=== PATIENT | female | born 1975 | race Caucasian/White ===

== ENCOUNTER 2016-04-03 01:08 | Emergency (ER) | payer OTHER ==
[2016-04-03 01:17] VITALS: BP 157/94
[2016-04-03] MEDS ORDERED: NAPROXEN SODIUM 550 MG TABLET PO ONE (01:33)
[2016-04-03] MEDS ORDERED: PENICILLIN V POTASSIUM 250 MG TABLET PO ONE (01:33)
--- NOTE | 2016-04-03 01:33 | ERNOTE ---
ENT HPI Date of Service: 04/03/16 Time Seen by Provider: 04/03/16 01:28 Source: patient - Immun/Allergies/Home Medications Immunizations: IMMUNIZATION HX Immunizations Up to Date Yes History of Influenza Vaccine No Allergies/Adverse Reactions: Allergies Allergy/AdvReac Type Severity Reaction Status Date / Time No Known Allergies Allergy Verified 06/23/15 12:42 Home Medications: HOME MEDICATIONS Norgestimate-Ethinyl Estradiol [Ortho Tri-Cyclen Lo] 1 each PO DAILY 06/25/12 [ Last Taken 01/08/13 08:00] Ranitidine HCl [Zantac 75] 75 mg PO DAILY 06/23/15 [Last Taken Unknown] Naproxen [Naprosyn] 500 mg PO BID PRN #20 tab 04/03/16 [Last Taken Unknown] Penicillin V Potassium [Pen-Vee K] 500 mg PO QID #40 tab 04/03/16 [Last Taken Unknown] - History of Present Illness Narrative: Here for dental pain. Has appointment with dentist next week. Review of Systems - Review of Systems Constitutional: Present: no symptoms reported EYE: Present: no symptoms reported ENT: Present: See HPI Respiratory: Present: no symptoms reported Cardiology: Present: no symptoms reported Gastrointestinal/Abdominal: Present: no symptoms reported - Patient's Past Medical History Patient History - Medical: GERD Patient History - Cardiac/Respiratory: No pertinent hx Patient History - Cancer: No Hx of Cancer Patient History - Surgical Procedures: No surgical history Patient History - Other: None LMP (females 10-50): this week - Social History Living Situations: spouse Abuse History: No History of abuse Psych History: No pertinent hx Smoking Status: Never smoker Have you smoked in the past 12 months: No Do you dip or chew tobacco: No Alcohol Use: none Drug Use: none - Immunizations Immunizations Up to Date: Yes History of Influenza Vaccine: No Physical Exam - Physical Exam General Appearance: Present: wd/wn, alert, no apparent distress Ears, Nose, Throat: Present: hearing grossly normal, other - pt has poor dentition and there is a missing tooth, #32. the gingiva in the general area is inflammed. PT has multiple caries. Neck: Present: normal inspection, nontender Respiratory: Present: no respiratory distress, normal breath sounds, chest nontender, lungs clear Cardiovascular/Chest: Present: regular rate, rhythm, no murmur, normal peripheral pulses ED Progress - Vital Signs Patient's Vital Signs:: I have reviewed the patient's vital signs. Vital Signs: Vital Signs 04/03/16 01:09 Temperature 36.5 C Pulse Rate 75 Respiratory 18 Rate Blood Pressure 157/94 O2 Sat by Pulse 98 Oximetry - Progress/Reassessment Chief Complaint: Dental Problem Departure Clinical Impression: Tooth ache - Departure Disposition: Home self-care Condition: Good Instructions: Dental Caries Referrals: Kelsey Goodwin MD [Primary Care Provider] - Prescriptions: Naproxen [Naprosyn] 500 mg PO BID PRN #20 tab PRN Reason: Pain Penicillin V Potassium [Pen-Vee K] 500 mg PO QID #40 tab
[2016-04-03] MEDS ORDERED: NAPROXEN SODIUM 550 MG TABLET ONE (01:41)
[2016-04-03] MEDS ORDERED: PENICILLIN V POTASSIUM 250 MG TABLET ONE (01:41)
== END 2016-04-03 01:45 | disposition home or self-care (01) ==
LOC: ER 01:08
DX: K08.89 Other specified disorders of teeth and supporting structures (principal)

== ENCOUNTER 2016-05-30 10:30 | Emergency (ER) | payer OTHER ==
[2016-05-30 11:25] VITALS: BP 131/78
--- NOTE | 2016-05-30 11:43 | ERNOTE ---
ENT [facility] Date of Service: 05/30/16 Presenting Symptoms: dental pain Time Seen by Provider: 05/30/16 11:31 Source: patient Exam Limitations: no limitations - Immun/Allergies/Home Medications Immunizations: IMMUNIZATION HX Immunizations Up to Date Yes History of Influenza Vaccine No Allergies/Adverse Reactions: Allergies Allergy/AdvReac Type Severity Reaction Status Date / Time No Known Allergies Allergy Verified 05/30/16 11:25 Home Medications: HOME MEDICATIONS Norgestimate-Ethinyl Estradiol [Ortho Tri-Cyclen Lo] 1 each PO DAILY 06/25/12 [ Last Taken 01/08/13 08:00] Ranitidine HCl [Zantac 75] 75 mg PO DAILY 06/23/15 [Last Taken Unknown] Naproxen [Naprosyn] 500 mg PO BID PRN #20 tab 04/03/16 [Last Taken Unknown] Penicillin V Potassium [Pen-Vee K] 500 mg PO QID #40 tab 04/03/16 [Last Taken Unknown] Penicillin V Potassium [Pen-Vee K] 500 mg PO QID #120 tab 05/30/16 [Last Taken Unknown] - History of Present Illness Narrative: Left lower jaw dental pain a month ago, better with penicillin. Pain back for a few days now, out of pencillin. Ibuprofen working for the pain. Appt oral surgeon a month from now. Severity: Present: mild, moderate ENT Location: Present: dental Prearrival Treatment: Present: over the counter meds Modifying Factors - Improves: Reports: medication Modifying Factors - Worsens: Reports: nothing Associated Symptoms - ENT: Reports: denies symptoms Prior Treament: Denies: currently on antibiotics Review of Systems - Review of Systems Constitutional: Present: no symptoms reported EYE: Present: no symptoms reported ENT: Present: no symptoms reported Respiratory: Present: no symptoms reported Cardiology: Present: no symptoms reported Gastrointestinal/Abdominal: Present: no symptoms reported Genitourinary: Present: no symptoms reported Musculoskeletal: Present: no symptoms reported Skin: Present: no symptoms reported Neurological: Present: no symptoms reported Endocrine: Present: no symptoms reported Hematologic/Lymphatic: Present: no symptoms reported Psych: Present: no symptoms reported All Other Systems: All systems neg except as marked - Patient's Past Medical History Patient History - Medical: GERD Patient History - Cardiac/Respiratory: No pertinent hx Patient History - Cancer: No Hx of Cancer Patient History - Surgical Procedures: No surgical history Patient History - Other: None LMP (females 10-50): last week - Social History Living Situations: home Abuse History: No History of abuse Psych History: No pertinent hx Alcohol Use: none Drug Use: none - Immunizations Immunizations Up to Date: Yes History of Influenza Vaccine: No Physical Exam - Physical Exam General Appearance: Present: wd/wn, alert, no apparent distress Ears, Nose, Throat: Present: normal ENT inspection, other - carious tooth mandible on left, tender Neck: Present: normal inspection, nontender. Absent: lymphadenopathy (R), lymphadenopathy (L) Respiratory: Present: no respiratory distress Cardiovascular/Chest: Present: regular rate, rhythm Extremity Exam: Present: normal inspection, no edema Neurological Exam: Present: alert, oriented, normal mood/affect Skin Exam: Present: normal color, warm/dry ED Progress - Vital Signs Patient's Vital Signs:: I have reviewed the patient's vital signs. Vital Signs: Vital Signs 05/30/16 11:23 Temperature 36.4 C L Pulse Rate 69 Respiratory 16 Rate Blood Pressure 131/78 O2 Sat by Pulse 96 Oximetry - Progress/Reassessment Chief Complaint: Dental Problem Departure Clinical Impression: Pain, dental - Departure Disposition: Home self-care Condition: Good Instructions: Dental Caries Additional Instructions: keep appt with oral surgeon Referrals: Kelsey Goodwin MD [Primary Care Provider] - Prescriptions: Penicillin V Potassium [Pen-Vee K] 500 mg PO QID #120 tab
--- OUTSIDE RECORDS SUMMARY | 2016-05-30 11:52 | XMS REPORT | Summary of Care ---
:1975 Author Organization [facility] Address [address] [place] [address] Encounter Date(s): 04/05/16 - 04/05/16 [facility], [address] [place], [place] [address] Discharge Disposition: 01 Discharged to Home or Self Care Attending Physician: Ernesto Anguiano MD Vital Signs No data available for this section Problem List Condition Effective Dates Status Health Status Informant (Confirmed) < 02/25/04 Resolved (Confirmed) < 2001 Resolved (Confirmed) < 11/28/11 Resolved (Confirmed) < 07/08/01 Resolved Allergies, Adverse Reactions, Alerts No Known Medication Allergies Medications Ortho Tri-Cyclen 1 tab(s), Oral, Daily, # 28 tab(s), 0 Refill(s), Start Date: 03/11/14 8:33:00 OFFICE NURSE PRACTITIONER Start Date: 03/11/14 Stop Date: 03/11/14 Status: DiscontinuedOrtho Tri-Cyclen oral tablet 1 tab(s), Oral, Daily, # 28 tab(s), 11 Refill(s), Start Date: 03/26/14 13:26:33 OFFICE NURSE PRACTITIONER, [facility] [place] Start Date: 03/26/14 Stop Date: 02/10/15 Status: CompletedOrtho Tri-Cyclen oral tablet 1 tab(s), Oral, Daily, has appt 04/02/2015, # 28 tab(s), 1 Refill(s), Start Date: 02/10/15 12:12:28 OFFICE NURSE PRACTITIONER, Pharmacy: [place], [place] Special Instructions: has appt 04/02/2015 Start Date: 02/10/15 Stop Date: 04/02/15 Status: DiscontinuedOrtho Tri-Cyclen oral tablet 1 tab(s), Oral, Daily, has appt 04/02/2015, # 28 tab(s), 2 Refill(s), Start Date: 02/13/16 15:19:16 OFFICE NURSE PRACTITIONER, [facility] [place] [place] Special Instructions: has appt 04/02/2015 Start Date: 02/13/16 Status: OrderedOrtho Tri-Cyclen oral tablet 1 tab(s), Oral, Daily, # 28 tab(s), 0 Refill(s), Start Date: 03/11/14 8:34:00 OFFICE NURSE PRACTITIONER, Pharmacy: [facility] [place], [place] Start Date: 03/11/14 Stop Date: 03/26/14 Status: DiscontinuedOrtho Tri-Cyclen oral tablet 1 tab(s), Oral, Daily, has appt 04/02/2015, # 28 tab(s), 11 Refill(s), Start Date : 04/02/15 10:58:15 OFFICE NURSE PRACTITIONER, [facility] [place] [place] Special Instructions: has appt 04/02/2015 Start Date: 04/02/15 Stop Date: 02/13/16 Status: Completed Results No data available for this section Immunizations No data available for this section Procedures Procedure Date Related Diagnosis Body Site Upper GI endoscopy 2014 Miscellaneous operations - scar tissue removed from 1993 vaginal area Social History No data available for this section Assessment and Plan No data available for this section
== END 2016-05-30 11:48 | disposition home or self-care (01) ==
LOC: ER 10:30
DX: K08.89 Other specified disorders of teeth and supporting structures (principal)

== ENCOUNTER 2016-09-12 10:13 | Emergency (ER) | payer OTHER ==
--- NOTE | 2016-09-12 10:56 | ERNOTE ---
ENT HPI Time Seen by Provider: 09/12/16 10:53 Source: patient Exam Limitations: no limitations - Immun/Allergies/Home Medications Immunizations: IMMUNIZATION HX Immunizations Up to Date Yes History of Influenza Vaccine No Hx Pneumococcal Vaccination No Allergies/Adverse Reactions: Allergies Allergy/AdvReac Type Severity Reaction Status Date / Time No Known Allergies Allergy Verified 09/12/16 10:37 Home Medications: HOME MEDICATIONS Norgestimate-Ethinyl Estradiol [Ortho Tri-Cyclen Lo] 1 each PO DAILY 06/25/12 [ Last Taken 01/08/13 08:00] Ranitidine HCl [Zantac 75] 75 mg PO DAILY 06/23/15 [Last Taken Unknown] Amoxicillin Trihydrate [Amoxil] 500 mg PO TID #30 cap 09/12/16 [Last Taken Unknown] Levothyroxine Sodium 09/12/16 [Last Taken Unknown] - History of Present Illness Narrative: Patient has had a sore throat and a cough for three days, no other symptoms, is having a sore throat also Review of Systems - Review of Systems Constitutional: Absent: recent illness, fever, chills ENT: Present: sore throat. Absent: ear pain, nose congestion, nasal drainage Respiratory: Present: cough. Absent: shortness of breath Cardiology: Absent: chest pain Gastrointestinal/Abdominal: Absent: nausea, vomiting, diarrhea, abdominal pain Musculoskeletal: Present: no symptoms reported Skin: Absent: rash Neurological: Absent: headache - Patient's Past Medical History Patient History - Medical: GERD, Hypothyroidism Patient History - Cardiac/Respiratory: Hypertension Patient History - Cancer: No Hx of Cancer Patient History - Surgical Procedures: Other Patient History - Other: None LMP (females 10-50): last week - Social History Living Situations: home Abuse History: No History of abuse Psych History: No pertinent hx Smoking Status: Never smoker Alcohol Use: none Drug Use: none - Immunizations Immunizations Up to Date: Yes Hx Pneumococcal Vaccination: No History of Influenza Vaccine: No Physical Exam - Physical Exam General Appearance: Present: wd/wn, alert, no apparent distress Eye Exam: Normal inspection: bilateral Ears, Nose, Throat: Present: normal except -, pharyngeal erythema. Absent: pharyngeal swelling Neck: Present: normal inspection, nontender. Absent: lymphadenopathy (R), lymphadenopathy (L) Respiratory: Present: no respiratory distress, normal breath sounds, no accessory muscle use, lungs clear Cardiovascular/Chest: Present: regular rate, rhythm, no murmur Gastrointestinal/Abdominal: Present: nontender, nondistended Neurological Exam: Present: alert, oriented, normal mood/affect Skin Exam: Present: normal color, warm/dry ED Progress - Results and Orders Patient's Lab Results:: I have reviewed the patient's lab results. - Vital Signs Patient's Vital Signs:: I have reviewed the patient's vital signs. Vital Signs: Vital Signs 09/12/16 10:34 Temperature 36.9 C Pulse Rate 77 Respiratory 16 Rate Blood Pressure 134/87 O2 Sat by Pulse 96 Oximetry - Progress/Reassessment Chief Complaint: Sore Throat Progress Note-Subjective: 09/12/16 11:03 discussed results Departure Clinical Impression: Strep pharyngitis - Departure Disposition: Home self-care Condition: Good Instructions: Strep Throat, [id number] Referrals: Kelsey Goodwin MD [Primary Care Provider] - Prescriptions: Amoxicillin Trihydrate [Amoxil] 500 mg PO TID #30 cap
[2016-09-12 11:15] VITALS: BP 142/89
== END 2016-09-12 11:15 | disposition home or self-care (01) ==
LOC: ER 10:13
DX: J02.0 Streptococcal pharyngitis (principal)